=== PATIENT | female | born 1980 ===

== ENCOUNTER 2019-01-30 09:49 | Emergency (ER) | payer OTHER ==
[2019-01-30 10:04] VITALS: BP 126/80; PULSE 63; RESP 18; TEMP 98; O2SAT 100; BMI 25.7
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
[2019-01-30 11:59] LABS: URINE BILIRUBIN NEGATIVE (NEGATIVE); URINE BLOOD SMALL (NEGATIVE); URINE CLARITY CLEAR (Clear); URINE COLOR COLORLESS (YELLOW); URINE GLUCOSE (UA) NEG (NEGATIVE); URINE LEUKOCYTE ESTERASE NEG Leu/uL (Negative); URINE PROTEIN NEGATIVE (NEGATIVE); URINE UROBILINOGEN 0.2-1.0 mg/dL (0.2-1.0)
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
== END 2019-01-30 15:17 | disposition home or self-care (01) ==
LOC: H.ER 09:49
DX: R31.9 Hematuria, unspecified (principal); S00.03XA Contusion of scalp, initial encounter; V13.4XXA Pedal cycle driver injured in collision with car, pick-up truck or van in traffic accident, initial encounter; Y93.55 Activity, bike riding